=== PATIENT | male | born 2000 | race Caucasian/White ===

== ENCOUNTER 2021-06-11 10:35 | Emergency (ER) | payer MEDICAID ==
[~2021-06-11] VITALS: Ht 172.7 cm; Wt 63.5 kg
[2021-06-11 10:40] VITALS: BP_SYST 98
--- NOTE | 2021-06-11 10:40 | NUR ---
Patient to ER bed H2 to gown for evaluation. Side rails up.
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
--- NOTE | 2021-06-11 10:53 | NUR ---
ER DR. RODRIGUEZ EXAMINING PT
--- NOTE | 2021-06-11 10:59 | NUR ---
PORTABLE XRAY AT THE BEDSIDE
--- NOTE | 2021-06-11 11:26 | NUR ---
[place]yer of care received , pt A&Ox4, pt requesting pain medication, MD notified
[2021-06-11] MEDS ORDERED: ACETAMINOPHEN 500 MG TABLET PO ONE (11:30)
[2021-06-11 14:21] VITALS: BP_SYST 98
--- NOTE | 2021-06-11 14:22 | NUR ---
Patient given written and verbal discharge instructions and verbalizes understanding. ER MD discussed with patient the results and treatment provided. Patient in stable condition. ID arm band removed. No Rx given. Patient educated on pain management and to follow up with PMD. Pain Scale 2/10 . Opportunity for questions provided and answered. Medication side effect fact sheet provided.
== END 2021-06-11 14:22 | disposition home or self-care (01) ==
LOC: SED 10:35
DX: S42.012A Anterior displaced fracture of sternal end of left clavicle, initial encounter for closed fracture (principal); V18.4XXA Pedal cycle driver injured in noncollision transport accident in traffic accident, initial encounter; Y93.89 Activity, other specified; Y92.89 Other specified places as the place of occurrence of the external cause; Y99.8 Other external cause status
CPT/HCPCS: 73030; 73060-TC; 99284